=== PATIENT | female | born 1970 | race Caucasian/White ===

== ENCOUNTER → 2017-01-13 | Outpatient (CLI) | payer OTHER ==
[~2017-01-13] MED LIST: MULTIPLE VITAMI1 CAP PO; NORCO 325 MG-7.1 TAB PO
== END ==
LOC: COL.RAD 09:31
DX: E04.2 Nontoxic multinodular goiter (principal); E05.90 Thyrotoxicosis, unspecified without thyrotoxic crisis or storm
CPT/HCPCS: A9516

== ENCOUNTER 2020-04-16 17:48 | Emergency (ER) | payer OTHER ==
[~2020-04-16] VITALS: Ht 157.5 cm; Wt 55.9 kg
[2020-04-16 18:14] VITALS: TEMP 97.6
[2020-04-16 19:07] LABS: HEMATOCRIT 42.1 % (37.0-47.0); HEMOGLOBIN 14.1 g/dl (12.5-16.0); MEAN CELL VOLUME 89 fl (80.0-100.0); MEAN CORPUSCULAR HEMOGLOBIN 30 pg (27.0-31.0); MEAN CORPUSCULAR HGB CONC 34 g/dl (33.0-37.0); MEAN PLATELET VOLUME 10.6 fl (7.4-10.4); PLATELET COUNT 236 K/mm3 (130-400); RED BLOOD COUNT 4.72 M/mm3 (4.10-5.30); REDCELL DISTRIBUTION WIDTH-CV 12.3 % (11.5-14.5)
[2020-04-16 19:20] LABS: ALANINE AMINOTRANSFERASE 15 U/L (4-34); ALBUMIN 4.9 gm/dL (3.5-5.0); ALKALINE PHOSPHATASE 74 U/L (50-136); ANION GAP 11 mmol/L (7-16); AST,SGOT 30 U/L (15-37); BILIRUBIN,TOTAL 0.6 mg/dL (0.0-1.0); BLOOD UREA NITROGEN 14 mg/dL (7-17); C-REACTIVE PROTEIN 0.6 mg/dL (0.0-0.9); CALCIUM 9.7 mg/dL (8.4-10.2); CARBON DIOXIDE 24 mmol/L (22-30); CHLORIDE 103 mmol/L (98-107); CREATININE, serum 0.75 (0.52-1.25); GLUCOSE 125 mg/dL (74-106); LIPASE 133 U/L (23-300); POTASSIUM 3.7 mmol/L (3.4-5.0); SODIUM 138 mmol/L (137-145); TOTAL PROTEIN 8.5 gm/dL (6.4-8.2)
[2020-04-16 19:32] LABS: TROPONIN-I < 0.012 ng/mL (0.000-0.035)
[2020-04-16 19:57] LABS: LYMPHOCYTE 3 % (20.0-51.0); NEUTROPHILS 94 % (42.0-75.2); PLATELET ESTIMATE NORMAL (NORMAL)
[2020-04-16] MEDS ORDERED: SYNTHROID0.05 MG/TA PO (19:59)
[2020-04-16 22:00] VITALS: BP 132/90; PULSE 84
== END 2020-04-16 22:00 ==
LOC: COL.ER 17:48
PROVIDERS: Nurse Practitioner Primary Care
DX: G93.89 Other specified disorders of brain (principal); E03.9 Hypothyroidism, unspecified; Z79.890 Hormone replacement therapy
CPT/HCPCS: J1100; J2060; J2405; J7030

== ENCOUNTER 2021-01-28 11:47 | Emergency (ER) | payer OTHER ==
[~2021-01-28] VITALS: Ht 157.5 cm; Wt 50.0 kg
[~2021-01-28 11:47] MED LIST changes: +SYNTHROID0.05 MG/TA PO
[2021-01-28 12:55] LABS: MEAN CELL VOLUME 116 fl (80.0-100.0); MEAN CORPUSCULAR HGB CONC 32 g/dl (33.0-37.0); MEAN PLATELET VOLUME 11.5 fl (7.4-10.4); PLATELET COUNT 102 K/mm3 (130-400); REDCELL DISTRIBUTION WIDTH-CV 19.5 % (11.5-14.5)
[2021-01-28 13:04] LABS: HEMATOCRIT 29.1 % (37.0-47.0); HEMOGLOBIN 9.4 g/dl (12.5-16.0); MEAN CORPUSCULAR HEMOGLOBIN 38 pg (27.0-31.0)
[2021-01-28 13:12] LABS: ALBUMIN 3.5 gm/dL (3.5-5.0); BILIRUBIN,TOTAL 0.4 mg/dL (0.2-1.2); CALCIUM 8.9 mg/dL (8.4-10.2); CREATININE, serum 0.71 mg/dL (0.57-1.11); POTASSIUM 3.6 mmol/L (3.5-4.5); TOTAL PROTEIN 6.6 gm/dL (6.2-8.1)
[2021-01-28 13:20] LABS: BAND 2 % (0-10); EOSINOPHIL 3 % (0-4); LYMPHOCYTE 8 % (20.0-51.0); NEUTROPHILS 70 % (42.0-75.2); NUCLEATED RED BLOOD CELL 3 (0-6)
[2021-01-28 13:21] LABS: ANISOCYTOSIS 2+; HYPOCHROMIA 1+; PLATELET ESTIMATE DECREASED (NORMAL)
[2021-01-28 13:23] LABS: SCHISTOCYTES 1+
--- NOTE | 2021-01-28 16:46 | NUR ---
Clinical Rehabilitation Liaison received consult for patient in the ED who will need home oxygen set up upon discharge. SW met with patient and advised that referral would be sent to [facility] and that they would deliver oxygen to her room. Patient verbalized understanding and is in agreement with plan. JIMMIE contacted Ana [place] [facility] with orders. Ana advised they would deliver oxygen to ED. JIMMIE collaborated the above information to Kailey MAE.
[2021-01-28 17:00] VITALS: BP 124/64; PULSE 92; TEMP 97.6
== END 2021-01-28 17:00 | disposition home or self-care (01) ==
LOC: COL.ER 11:47
PROVIDERS: Nurse Practitioner Primary Care
DX: J90 Pleural effusion, not elsewhere classified (principal); C34.90 Malignant neoplasm of unspecified part of unspecified bronchus or lung; G93.89 Other specified disorders of brain
CPT/HCPCS: Q9967

== ENCOUNTER → 2021-02-18 | Outpatient (CLI) | payer OTHER ==
[~2021-02-18] VITALS: Ht 157.5 cm; Wt 47.5 kg
[~2021-02-18] MED LIST changes: +BUTRANS20 MCG/HR TD; +CELEBREX 1100 MG/CAP PO; +LEVOXYL0.112 MG PO; +NEURONTIN300 MG/CAP PO; +TAGRISSO80 MG PO
[2021-02-18 12:52] VITALS: BP 108/73; PULSE 101; TEMP 98.7
--- NOTE | 2021-02-18 13:15 | NUR ---
No fluid found procedure canceled. Pt out to .
== END ==
LOC: COL.RAD 12:09
DX: J90 Pleural effusion, not elsewhere classified (principal)